=== PATIENT | male | born 1940 | race American Indian/Alaskan Native ===

== ENCOUNTER 2017-12-29 08:35 | Outpatient (CLI) | payer MEDICARE, OTHER ==
--- NOTE | 2017-12-29 13:47 | Cat Scan Report ---
FINAL REPORT EXAM: CT ABDOMEN PELVIS WO CON HISTORY: MALIGNANT NEOPLASM OF PROSTATE TECHNIQUE: CT of the abdomen and pelvis was performed without intravenous contrast. Reconstructions were included in the coronal and sagittal planes. PRIORS: None. FINDINGS: Lower thorax: There is a calcified granuloma in the left upper lobe. Coronary artery calculi are seen. Liver: The liver is normal in attenuation. No intrahepatic biliary duct dilation. No focal hepatic lesions. Gallbladder/ biliary system: No cholelithiasis. The common bile duct appears nondilated. Spleen: No splenic lesions are seen. Pancreas: No pancreatic lesions are seen. No pancreatic duct dilation. Kidneys: No renal masses, cysts or hydronephrosis. No renal or ureteral calcifications. Adrenal glands: No adrenal masses. Vasculature: The abdominal aorta is nondilated. Atherosclerotic calculi are seen in the abdominal aorta. Lymph nodes: No enlarged lymph nodes are seen in the abdomen or pelvis. Bowel, mesentery, peritoneum: No bowel obstruction. No free fluid or free air. The appendix is normal. No colonic diverticulosis. No bowel wall thickening. Urinary bladder: No filling defects are seen. Pelvis: Normal anatomy is noted. No masses. Abdominal wall: There are bilateral fat containing inguinal hernias. Bones: Degenerative changes are seen in the spine. There is grade 1 anterolisthesis of L4 on L5 which is likely chronic. IMPRESSION: 1. No acute intra-abdominal or intrapelvic process. 2. Small bilateral fat containing inguinal hernias. 3. Coronary artery calculi.
--- NOTE | 2017-12-30 10:42 | Nuclear Medicine Report ---
BONE SCAN: History: Malignant neoplasm of prostate. Comparison: CT abdomen pelvis without contrast performed the same day. After injection of isotope, gamma camera imaging of the bony system was done. There is a normal uptake of isotope throughout the bony structures without areas of significantly increased or decreased uptake. Normal uptake in the urinary system is seen. IMPRESSION: No evidence for metastatic disease to the bones.
== END 2017-12-29 08:36 | disposition home or self-care (01) ==
LOC: NM 08:35
PROVIDERS: ATTEND Urology
DX: C61 Malignant neoplasm of prostate (principal); K40.20 Bilateral inguinal hernia, without obstruction or gangrene, not specified as recurrent; M47.896 Other spondylosis, lumbar region; I25.10 Atherosclerotic heart disease of native coronary artery without angina pectoris; I10 Essential (primary) hypertension; E78.00 Pure hypercholesterolemia, unspecified; M19.90 Unspecified osteoarthritis, unspecified site; F32.9 Major depressive disorder, single episode, unspecified; Z87.891 Personal history of nicotine dependence; Z86.73 Personal history of transient ischemic attack (TIA), and cerebral infarction without residual deficits
CPT/HCPCS: 74176; 78306; A9503

== ENCOUNTER 2019-04-26 08:12 | Observation (INO) | payer MEDICARE ==
[2019-04-26] MEDS ORDERED: ASPIRIN EC 325 MG TAB PO ONE (08:48)
[2019-04-26] MEDS ORDERED: SODIUM CHLORIDE 0.9% 500 ML 500 ML IV SCH (09:00)
[2019-04-26 09:24] LABS: Basophils # (Auto) 0.1 K/mm3 (0.0-0.1); Basophils % (Auto) 1.4 % (0.0-1.8); Eosinophils # (Auto) 0.1 K/mm3 (0.0-0.4); Eosinophils % (Auto) 2.8 % (0.0-4.3); Hematocrit 32.4 % (35.5-45.6); Hemoglobin 10.8 gm/dl (11.8-15.2); Lymphocytes # (Auto) 0.9 K/mm3 (1.2-5.4); Lymphocytes % (Auto) 21.7 % (13.4-35.0); Mean Corpuscular HGB Conc 34 % (32-34); Mean Corpuscular Volume 72 fl (84-94); Monocytes # (Auto) 0.5 K/mm3 (0.0-0.8); Monocytes % (Auto) 13.4 % (0.0-7.3); Platelet Count 167 K/mm3 (140-440); Red Blood Count 4.51 M/mm3 (3.65-5.03); Red Cell Distribution Width 16.5 % (13.2-15.2)
[2019-04-26 09:40] LABS: BUN/Creatinine Ratio 19; Blood Urea Nitrogen 19 mg/dL (9-20); Calcium 9.4 mg/dL (8.4-10.2); Hemolysis Index 1
[2019-04-26 09:50] LABS: INR 1.05 (0.87-1.13); Partial Thromboplastin Time 29.7 Sec. (24.2-36.6)
[2019-04-26] MEDS ORDERED: HEPARIN/NS 5000 UNIT/500ML 1,000 ML IR ONE (10:45)
[2019-04-26] MEDS: LIDOCAINE (2%) 20 MG/1 ML VIAL 20 ML MDV INFILTRATI ONE ×2 (11:08→11:41)
[2019-04-26] MEDS: fentaNYL 100 MCG/2 ML INJ ONE ×2 (11:08→11:40)
[2019-04-26] MEDS: HEPARIN 10,000 UNITS/10 ML VIAL ONE ×5 (11:08→12:30)
[2019-04-26] MEDS: MIDAZOLAM 2 MG/2 ML INJ ONE ×2 (11:08→11:40)
[2019-04-26] MEDS: VERAPAMIL 5 MG/2 ML INJ ONE ×2 (11:09→11:43)
[2019-04-26] MEDS: NITROGLYCERIN SYRINGE 3 ML ONE ×2 (11:09→11:43)
[2019-04-26] MEDS ORDERED: HEPARIN/NS 5000 UNIT/500ML 500 ML IR ONE (12:06)
[2019-04-26] MEDS ORDERED: HEPARIN 10,000 UNITS/10 ML VIAL ONE (12:15)
[2019-04-26] MEDS: CLOPIDOGREL 300 MG TAB ONE ×2 (12:33→12:50)
[2019-04-26] MEDS: ALUM-MAG HYDROXIDE-SIMETHICONE 200-200-20MG/5ML ORAL LIQD 30 ML ONE ×2 (12:33→12:50)
[2019-04-26] MEDS ORDERED: ACETAMINOPHEN 325 MG TAB PO PRN (12:41)
[2019-04-26] MEDS ORDERED: ZOLPIDEM 5 MG TAB PO PRN (12:41)
[2019-04-26] MEDS ORDERED: ONDANSETRON 4 MG/2 ML INJ IV PRN (12:41)
[2019-04-26] MEDS ORDERED: traMADol 50 MG TAB PO PRN (12:41)
[2019-04-26] MEDS ORDERED: NON-FORMULARY EACH (Simvastatin [Simvastatin] 40 MG) PO SCH (12:45)
--- NOTE | 2019-04-26 12:47 | Event Note ---
Date: 04/26/19 She underwent underwent outpatient cardiac catheterization for chest pain and abnormal thallium. We found a hazy, 75% stenosis of the distal circumflex, successful angioplasty and stenting using a 3.5 mm drug-eluting stent. Excellent angiographic result, no complications. The patient is admitted overnight for post coronary stent observation, anticipated discharge tomorrow morning. On discharge, addition of Plavix 75 mg daily to his regimen, and a continued hold on his metformin for 48 hours post contrast angiography.
--- NOTE | 2019-04-26 12:51 | Cardiac Catherization Report ---
REASON FOR PROCEDURE: Chest pain and abnormal thallium stress test. PROCEDURES: 1. Left heart catheterization. 2. Selective left and right coronary angiography. 3. Coronary angioplasty and stenting of the circumflex artery. 4. Sedation time start 11:40, end 12:26. DESCRIPTION OF PROCEDURE: The patient was prepped and draped in a sterile fashion after informed consent. The right radial cath site was prepped and draped after a negative Jarrod's test. The right radial artery was entered using Seldinger technique followed by placement of a 6-Gambian hydrophilic sheath. Routine radial cocktail was administered via the sheath. Selective left and right coronary angiography was performed using a #3.5 left Jacob and a #4 right Jacob. The angiograms were then reviewed. CORONARY ANGIOGRAPHY: The left main coronary artery was free of significant disease. The left anterior descending artery and its diagonal branches contained mild luminal irregularities. The circumflex artery was a large caliber system. There was a hazy, 75% stenosis of the distal circumflex, leading to a large terminal obtuse marginal branch. The right coronary artery contained mild diffuse ectasia, with mild luminal irregularities, no significant obstructive lesions. CORONARY ANGIOPLASTY: After review of the angiograms, ad hoc coronary intervention to the distal circumflex was recommended. Due to severe tortuosity of the brachiocephalic trunk, there was difficulty to guide engagement, ultimately we obtained a successful guiding engagement using a #4 left Jacob guiding catheter. A 0.014 inch Shipwright Helper 50 guidewire was directed into the circumflex, across the lesional segment. In a primary stenting maneuver, we deployed a 3.5 x 15 mm Xience drug-eluting stent, covering the lesional segment and inflated the stent to optimal pressures. Following stenting, there was an excellent angiographic result, 0 residual stenosis and PRICE 3 flow maintained. The catheters and the wires were removed, sheath removed, and hemostasis achieved using a TR band. The patient was returned to the post procedure unit in stable condition. There were no complications. CONCLUSION: 1. 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 2. Successful ad hoc angioplasty and stenting of the distal circumflex, with successful deployment of a 3.5 x 15 mm drug-eluting stent, excellent angiographic result. RECOMMENDATION: Guideline directed medical therapy including dual oral antiplatelet therapy. Echocardiogram is recommended for left ventricular function and valvular function assessment. JOB# [id number] DON/CAROL
[2019-04-26] MEDS ORDERED: POTASSIUM CHLORIDE ER 8 MEQ TAB PO SCH (13:00)
[2019-04-26] MEDS ORDERED: carvediloL 25 MG TAB PO SCH (13:00)
[2019-04-26] MEDS: amLODIPine 5 MG TAB PO SCH (16:03)
[2019-04-26] MEDS: FUROSEMIDE 40 MG TAB PO SCH (16:03)
[2019-04-26] MEDS: INSULIN REGULAR, HUMAN 100 UNITS/1 ML SUB-Q SCH ×2 (18:06→22:56)
[2019-04-26] MEDS ORDERED: PRAVASTATIN 80 MG TAB PO SCH (22:00)
[2019-04-26] MEDS: carvediloL 12.5 MG TAB PO SCH (22:50)
[2019-04-27 05:57] LABS: BUN/Creatinine Ratio 15; Blood Urea Nitrogen 15 mg/dL (9-20); Calcium 8.8 mg/dL (8.4-10.2); Hemolysis Index 1
[2019-04-27 08:22] LABS: Hematocrit 31.3 % (35.5-45.6); Hemoglobin 10.4 gm/dl (11.8-15.2); Lymphocytes % (Auto) 22.9 % (13.4-35.0); Mean Corpuscular HGB Conc 33 % (32-34); Mean Corpuscular Volume 72 fl (84-94); Platelet Count 157 K/mm3 (140-440); Red Blood Count 4.35 M/mm3 (3.65-5.03); Red Cell Distribution Width 16.6 % (13.2-15.2)
[2019-04-27 08:23] LABS: Basophils % (Auto) 0.8 % (0.0-1.8); Eosinophils # (Auto) 0.1 K/mm3 (0.0-0.4); Eosinophils % (Auto) 2.5 % (0.0-4.3); Lymphocytes # (Auto) 0.8 K/mm3 (1.2-5.4); Monocytes # (Auto) 0.5 K/mm3 (0.0-0.8); Monocytes % (Auto) 14.4 % (0.0-7.3)
[2019-04-27] MEDS ORDERED: POTASSIUM CHLORIDE ER 10 MEQ TAB PO SCH (10:00)
[2019-04-27] MEDS ORDERED: CLOPIDOGREL 75 MG TAB PO SCH (10:00)
[2019-04-27] MEDS ORDERED: LOSARTAN 50 MG TAB PO SCH (10:00)
[2019-04-27] MEDS ORDERED: ASPIRIN EC 325 MG TAB PO SCH (10:00)
[2019-04-27] MEDS ORDERED: TAMSULOSIN 0.4 MG CAP PO SCH (10:00)
[2019-04-27] MEDS: INSULIN REGULAR, HUMAN 100 UNITS/1 ML SUB-Q SCH (10:03)
[2019-04-27] MEDS: amLODIPine 5 MG TAB PO SCH (10:10)
[2019-04-27] MEDS: FUROSEMIDE 40 MG TAB PO SCH (10:10)
[2019-04-27] MEDS: carvediloL 12.5 MG TAB PO SCH (10:13)
--- NOTE | 2019-04-27 10:30 | Short Stay Summary ---
Short Stay Documentation Date of service: 04/27/19 - History H&P: obtained from office - Allergies and Medications Current Medications: Allergies No Known Allergies Allergy (Verified 04/26/19 08:47) Home Medications Medication Instructions Recorded Confirmed Last Taken Type Aspirin 325 mg PO DAILY 01/14/13 04/26/19 04/26/19 History 325 mg Losartan Potassium 100 mg PO DAILY 01/14/13 04/26/19 04/25/19 History 100 mg Simvastatin 40 mg PO DAILY 01/14/13 04/26/19 04/25/19 History 40 mg amLODIPine 5 mg PO DAILY 02/04/13 04/26/19 04/25/19 History 5 mg carvediloL [Coreg] 12.5 mg PO BID 02/18/13 04/26/19 04/25/19 History 12.5mg Cholecalciferol (Vitamin D3) 1 cap PO 1XW 04/26/19 04/26/19 04/22/19 History [Vitamin D3 50,000UNIT CAP] 1 Citalopram Hydrobromide 10 mg PO DAILY 04/26/19 04/26/19 04/25/19 History [Citalopram HBr] 10 mg Furosemide [Lasix TAB] 40 mg PO DAILY 04/26/19 04/26/19 04/25/19 History 40 mg Insulin NPH Hum/Reg Insulin Hm 35 units SC BID 04/26/19 04/26/19 04/25/19 History [Novolin 70-30 Flexpen] 40 units Potassium Chloride [Klor-Con 8] 10 meq PO DAILY 04/26/19 04/26/19 04/25/19 History 10 meq Tamsulosin [Flomax] 0.4 mg PO DAILY 04/26/19 04/26/19 04/25/19 History 0.4mg metFORMIN [Glucophage] 500 mg PO BID 04/26/19 04/26/19 04/25/19 History 500 mg Active Medications Acetaminophen (Tylenol) 650 mg PO Q4H PRN PRN Reason: Pain MILD(1-3)/Fever >100.5/HIDALGO Amlodipine Besylate (Amlodipine) 5 mg PO DAILY [facility] Last Admin: 04/27/19 10:10 Dose: 5 mg Documented by: Aspirin (Ecotrin) 325 mg PO QDAY [facility] Last Admin: 04/27/19 10:10 Dose: 325 mg Documented by: Carvedilol (Coreg) 12.5 mg PO BID [facility] Last Admin: 04/27/19 10:13 Dose: 12.5 mg Documented by: Clopidogrel Bisulfate (Plavix) 75 mg PO QDAY [facility] Last Admin: 04/27/19 10:10 Dose: 75 mg Documented by: Furosemide (Lasix) 40 mg PO DAILY [facility] Last Admin: 04/27/19 10:10 Dose: 40 mg Documented by: Insulin Human Regular (Humulin R) 0 units SUB-Q ACHS [facility]; Protocol Last Admin: 04/27/19 10:03 Dose: Not Given Documented by: Losartan Potassium (Cozaar) 100 mg PO DAILY [facility] Last Admin: 04/27/19 10:10 Dose: 100 mg Documented by: Ondansetron HCl (Zofran) 4 mg IV Q8H PRN PRN Reason: N/V unrelieved by Ayo Potassium Chloride (K-Dur) 10 meq PO QDAY [facility] Last Admin: 04/27/19 10:11 Dose: 10 meq Documented by: Pravastatin Sodium (Pravachol) 80 mg PO QHS [facility] Last Admin: 04/26/19 22:50 Dose: 80 mg Documented by: Tamsulosin HCl (Flomax) 0.4 mg PO DAILY [facility] Last Admin: 04/27/19 10:10 Dose: 0.4 mg Documented by: Tramadol HCl (Ultram) 50 mg PO Q4H PRN PRN Reason: Pain, Mild (1-3) Last Admin: 04/26/19 12:45 Dose: 50 mg Documented by: Zolpidem Tartrate (Ambien) 5 mg PO QHS PRN PRN Reason: Sleep - Physical exam General appearance: no acute distress HEENT: PERRLA Lungs: Clear to auscultation Heart: Regular rate, Normal S1, Normal S2 Neurological: Normal speech - Brief post op/procedure progress note Procedure: She underwent underwent outpatient cardiac catheterization. He was found to have a hazy, 75% stenosis of the distal circumflex, successful angioplasty and stenting using a 3.5 mm drug-eluting stent. Excellent angiographic result, no complications. - Hospital course Hospital course: The patient was admitted overnight for post coronary stent observation. On discharge, addition of Plavix 75 mg daily to his regimen and a continued hold on his metformin for 48 hours post contrast angiography. - Disposition Condition at discharge: Good Disposition: [id number] TO HOME OR SELFCARE Short Stay Discharge Plan Activity: advance as tolerated Weight Bearing Status: Full Weight Bearing Diet: low fat, low cholesterol, low salt Wound: keep clean and dry Special Instructions: no heavy lifting (for 72hrs) Additional Instructions: HOLD Metformin 48hrs post cardiac cath then resume as previously ordered. Follow up with [facility] at 1030 am. Follow up with: MARKY CAMILO MD [Primary Care Provider] - 7 Days ECTOR ESPOSITO MD [Staff Physician] - 7 Days Prescriptions: Aspirin 81 mg PO QDAY #30 tablet Clopidogrel [Plavix] 75 mg PO QDAY #30 tablet
--- NOTE | 2019-04-27 10:41 | XRay Report ---
CHEST 1 VIEW INDICATION: post pci. COMPARISON: None. FINDINGS: Support devices: None. Heart: Within normal limits. Pulmonary vasculature: Normal. Lungs/Pleura: No acute air space or interstitial disease. No pneumothorax. Additional findings: None. IMPRESSION: 1. No acute findings. Signer Name: Shola Willis MD Signed: 04/27/2019 10:36 AM Workstation Name: [id number]
[2019-04-27 13:30] VITALS: BP 128/71
== END 2019-04-27 13:56 | disposition home or self-care (01) ==
LOC: CATHLABREC 08:12 → 4A 12:41
PROVIDERS: ADMIT Internal Medicine Cardiovascular Disease; ATTEND Internal Medicine Cardiovascular Disease
DX: I24.9 Acute ischemic heart disease, unspecified (principal); E11.9 Type 2 diabetes mellitus without complications; Z79.4 Long term (current) use of insulin; Z98.61 Coronary angioplasty status; Z79.82 Long term (current) use of aspirin
CPT/HCPCS: 36415; 71045; 80048; 82550; 82553; 82962; 84484; 85025; 85347; 85610; 85730; 93005; 93010; 93454; 96372; A9270; C1769; C1874; C1887; C1894; C9600; G0378; J1644; J2250; J3010; J7040; 92928; Q9967